=== PATIENT | female | born 1960 | race Caucasian/White ===

== ENCOUNTER 2019-07-13 15:47 | Emergency (ER) | payer OTHER ==
[~2019-07-13] VITALS: Ht 154.9 cm; Wt 72.6 kg
--- NOTE | 2019-07-13 16:00 | NUR ---
TO ER BED 7,AWAITING MV EVAL
--- NOTE | 2019-07-13 17:07 | NUR ---
COVID SWAB DONE AND SENT TO LAB
[2019-07-13 17:28] VITALS: BP 118/86
--- NOTE | 2019-07-13 17:28 | NUR ---
Patient discharged to home in stable condition. Written and verbal after care instructions given. Patient verbalizes understanding of instruction. Pt ambulatory with a steady gait
--- NOTE | 2019-07-14 13:23 | NUR ---
CALLED ON THE PHONE NUMBER ON-FILE,LEFT MESSAGE TO CALL BACK
--- NOTE | 2019-07-14 13:57 | NUR ---
CALL RECEIVED,ADVISED TO CALL PMD FOR FURTHER MGT,AND COME TO THE HOSPITAL FOR WORSENING OF SX.STRICT CDC GUIDELINES REGARDING ISOLATION
== END 2019-07-13 17:29 | disposition home or self-care (01) ==
LOC: ER 15:51
DX: U07.1 COVID-19 (principal); J40 Bronchitis, not specified as acute or chronic
CPT/HCPCS: 71045-TC

== ENCOUNTER 2019-07-18 18:03 | Emergency (ER) | payer OTHER ==
[~2019-07-18] VITALS: Ht 165.1 cm; Wt 76.2 kg
--- NOTE | 2019-07-18 18:25 | NUR ---
PT REC'D TO ER C/O ABD PAIN AND FEVER POS FOR COVID ON 07/13/19 ON ZPACK . IV STARTED 20G RT AC LABS AND CULTURES SENT TO LAB
[2019-07-18 18:44] LABS: BASOPHILS % (AUTO) 0.3 % (0.0-2.0); EOSINOPHILS % (AUTO) 0.9 % (0.0-6.0); HEMATOCRIT 39 % (33-45); HEMOGLOBIN 12.8 g/dL (11.5-14.8); LYMPHOCYTES # (AUTO) 1.7 /CMM (0.8-4.8); LYMPHOCYTES % (AUTO) 45.9 % (20.0-44.0); MEAN CORPUSCULAR HGB CONC 33 g/dl (31.0-36.0); MEAN CORPUSCULAR VOLUME 86 fL (82-100); MONOCYTES # (AUTO) 0.2 /CMM (0.1-1.30); NEUTROPHILS # (AUTO) 1.7 /CMM (1.8-8.9); NEUTROPHILS % (AUTO) 46.9 % (43.0-81.0); PLATELET COUNT (AUTO) 186 /CMM (150-450); RED BLOOD CELL COUNT(AUTO) 4.49 MIL/uL (4.0-5.2); WHITE BLOOD COUNT (AUTO) 3.6 K/uL (4.3-11.0)
[2019-07-18 18:52] LABS: CALCIUM, SERUM 8.5 mg/dL (8.5-10.1); POTASSIUM 3.8 mmol/L (3.5-5.1)
[2019-07-18 19:10] LABS: BILIRUBIN,DIRECT 0.1 mg/dL (0.0-0.2); BILIRUBIN,TOTAL 0.2 mg/dL (0.2-1.0)
[2019-07-18 19:11] LABS: ALBUMIN 3.5 g/dL (3.4-5.0); TOTAL PROTEIN, SERUM 7.3 g/dL (6.4-8.2)
--- NOTE | 2019-07-18 20:15 | NUR ---
JACKLYN KILLIAN'S SON
[2019-07-18] MEDS ORDERED: ACETAMINOPHEN 325 MG TABLET ONE (20:28)
--- NOTE | 2019-07-18 20:36 | NUR ---
URINE COLLECTED AND SENT TO LAB
[2019-07-18 20:38] LABS: APPEARANCE,URINE Clear (CLEAR); BILIRUBIN,URINE Negative (NEGATIVE); BLOOD, URINE Trace-lysed Ery/uL (NEGATIVE); COLOR,URINE Yellow (YELLOW); KETONES,URINE Negative (NEGATIVE); LEUKOCYTE ESTERASE ,URINE Negative (NEGATIVE); NITRITE, URINE Negative (NEGATIVE); PH,URINE 7.5 (5.0-8.0); PROTEIN,URINE Negative (NEGATIVE); UGLUCOSE Negative (NEGATIVE); UROBILINOGEN,URINE 0.2 EU/dL (0.2)
[2019-07-18 20:44] LABS: BACTERIA,URINE Rare /HPF (None Seen); SQUAMOUS EPITHELIAL CELL,UR Few /HPF (None Seen); WBC,URINE 0-2 /HPF (0-3)
--- NOTE | 2019-07-18 21:50 | NUR ---
Patient discharged to home in stable condition. Written and verbal after care instructions given. Patient verbalizes understanding of instruction.
[2019-07-18 21:51] VITALS: BP 138/71
[2019-07-20] MEDS ORDERED: ACETAMINOPHEN 650 MG/20.3 ML UDC PO ONE (09:00)
== END 2019-07-18 21:51 | disposition home or self-care (01) ==
LOC: ER 18:03
DX: R07.89 Other chest pain (principal)
CPT/HCPCS: 36415; 71045-TC; 80048-TC; 80076-TC; 81000-TC; 83690-TC; 85025-TC